=== PATIENT | male | born 1980 | race Two or more races ===

== ENCOUNTER 2020-01-29 09:54 | Inpatient (IN) | payer SELFPAY ==
[2020-01-29] VITALS (12 sets, daily range): BP systolic 110–137; BP diastolic 70–97; PULSE 93–116; RESP 15–26; TEMP 36.6–37.9; O2SAT 94–97; BMI 37.1
--- NOTE | ~2020-01-29 | XR_ITS ---
EXAMINATION: XR ERCP DATE: 01/31/2020 17:26 INDICATION: Right upper quadrant abdominal pain. TECHNIQUE: 5 spot fluoroscopic images of the right upper quadrant were obtained during endoscopic ret rograde cholangiopancreatography (ERCP). Fluoroscopy exposure time was 148 seconds. COMPARISON: CT abdomen and pelvis 01/29/2020 FINDINGS: The endoscope tip is in the second portion the duodenum. There is opacification of the comm on duct. Images demonstrate filling defects in the common duct. The common duct is mildly dilated. IMPRESSION: 1. Filling defects in the common duct, consistent with sludge and/or stones. Please refer to the ERCP procedure note for additional details. Reviewed, dictated and finalized at location A. IMPRESSION: 1. Filling defects in the common duct, consistent with sludge and/or stones. Pl ease refer to the ERCP procedure note for additional details.
--- NOTE | ~2020-01-29 | US_ITS ---
EXAMINATION: US right upper quadrant DATE: 01/29/2020 14:03 INDICATION: Right upper quadrant abdominal pain. TECHNIQUE: Multiple grayscale and Doppler ultrasound images of the abdomen were obtained. COMPARISON: CT 01/29/2020 FINDINGS: The pancreas is not well visualized. The liver is normal without focal lesion. There is nor mal flow in main portal vein. The gallbladder is absent. The common duct is normal and measures 8 mm. IMPRESSION: 1. Normal right upper quadrant ultrasound status post cholecystectomy. Reviewed, dictated and finalized at location A.
--- NOTE | ~2020-01-29 | CT_ITS ---
EXAMINATION: CT brain wo con DATE: 01/29/2020 12:24 INDICATION: Headache. TECHNIQUE: Computed tomography (CT) of the head was performed without intravenous contrast. The mA wa s adjusted according to patient size. Iterative reconstruction technique was employed. The dose-lengt h product was 605.33 mGy-cm. COMPARISON: None FINDINGS: There is no intracranial hemorrhage, acute infarction, or abnormal intracranial mass lesion . The ventricles are normal in size. There is mild mucosal thickening in the ethmoid sinuses. The mas toid air cells are normal. The orbits are normal. IMPRESSION: 1. Normal brain. Reviewed, dictated and finalized at location A. IMPRESSION: 1. Normal brain.
--- NOTE | ~2020-01-29 | CT_ITS ---
EXAMINATION: Nikhil Oconnor PA-C DATE: 01/29/2020 12:24 INDICATION: Chest pain. Low back pain. Fever. TECHNIQUE: Computed tomographic angiography (CTA) of the chest, abdomen, and pelvis was performed wit h 100 mL Omnipaque-350 intravenous contrast. Automated exposure control and iterative reconstruction technique were employed. The dose-length product was 1510.74 mGy-cm. Maximum intensity projection 3D- reconstructions of the aorta and other arteries were constructed by the technologist on a separate wo rkstation. COMPARISON: None. FINDINGS: CHEST CTA: The lungs demonstrate mild atelectasis. The lung volumes are small. There is mild elevation of right hemidiaphragm. No pleural effusion. The heart size is normal. No pericardial effusion. There is no pu lmonary embolus, but sensitivity is mildly decreased by motion artifact. Thoracic aorta is normal in caliber. No aneurysm or dissection. ABDOMEN AND PELVIS CTA: The liver is normal. There is an internal biliary stent in expected position. There are changes of ch olecystectomy. The spleen, pancreas, adrenal glands, and right kidney are normal. There is a 2.8 cm c yst in left kidney. There are no dilated loops of bowel. The appendix is normal. There is mild aortic atherosclerosis. No aneurysm or dissection. Asymmetric fat in left inguinal canal may be a small her coral. The bones are unremarkable. IMPRESSION: 1. No aortic aneurysm or dissection. 2. Internal biliary stent in expected position. Reviewed, dictated and finalized at location A.
--- NOTE | ~2020-01-29 | XR_ITS ---
EXAMINATION: XR chest 1V portable DATE: 01/29/2020 10:49 INDICATION: Shortness of breath, fever, and headache. TECHNIQUE: A single frontal view of the chest was obtained. COMPARISON: None. FINDINGS: There is mild elevation of right hemidiaphragm. There is mild atelectasis in left lower derrick g zone. No pleural effusion or pneumothorax. The heart size is normal. IMPRESSION: 1. Mild elevation of right hemidiaphragm. 2. Mild atelectasis in left lower lung zone. Reviewed, dictated and finalized at location A.
[2020-01-29] MEDS: ONDANSETRON INJ 4 MG/2 ML VIAL IV PUSH (10:50)
[2020-01-29] MEDS: MORPHINE SULFATE 4 MG/ML INJ IV PUSH ×2 (10:50→11:53)
[2020-01-29 11:00] LABS: Hematocrit 46.7 % (42.0-52.0); Hemoglobin 15.7 g/dL (14.0-18.0); Mean Corpuscular HGB Conc 33.6 g/dl (32-36); Mean Corpuscular Hemoglobin 29.4 pg (26-34); Mean Corpuscular Volume 87.5 fl (80-100); Mean Platelet Volume 9.9 fl (7.4-10.4); Platelet Count Result 272 k/mm3 (150-375); Red Blood Count 5.34 M/mm3 (4.6-6.20); White Blood Count 12.6 K/mm3 (4.5-10.0)
[2020-01-29 11:11] LABS: Partial Thromboplastin Time 30.5 SECONDS (22.3-36.8)
--- NOTE | 2020-01-29 11:12 | ED.GENADULT ---
HPI - General Adult General Chief complaint: Headache Stated complaint: Fever, Headache Time Seen by Provider: 01/29/20 10:09 Source: patient Mode of arrival: ambulatory Limitations: no limitations History of Present Illness HPI narrative: Patient is a 39-year-old male who presents to emergency department noting for the last 2 days he has had subjective fever chills abdominal pain headache patient denies sick contacts patient presents per private vehicle has not taken anything for his symptoms. Patient denies chest pain dyspnea vomiting diarrhea rectal bleeding or melena or any URI symptoms. Patient denies similar occurrence in the past. Patient denies any significant past medical history. Patient notes a year and a half ago he had his gallbladder removed. Patient denies any tobacco alcohol or illicit drug abuse. Patient speaks Dive[place] and an county agent was used to obtain the history from the patient. Related Data Home Medications Medication Instructions Recorded Confirmed No Home Medications 01/29/20 01/29/20 Allergies Allergy/AdvReac Type Severity Reaction Status Date / Time No Known Allergies Allergy Verified 01/29/20 10:08 Review of Systems Review of Systems: All systems reviewed & are unremarkable except as noted in HPI and below PMFSH Past Medical History Medical History (Updated 01/29/20 @ 15:32 by Nikhil Oconnor PA-C) Obese Surgical History Surgical History (Updated 01/29/20 @ 11:14 by Nikhil Oconnor PA-C) History of cholecystectomy Social History Social History (Updated 01/29/20 @ 11:14 by Nikhil Oconnor PA-C) Smoking status: Never smoker Exam Narrative: Exam Narrative: GENERAL: Well-appearing, obese, and in no acute distress. HEAD: Normocephalic, atraumatic. EYES: PERRLA and EOMI. ENT: Nares clear, no rhinorrhea or epistaxis. Mucous membranes moist. Oropharynx without tonsillar hypertrophy exudate or other lesions. NECK: Supple. No adenopathy or masses. CHEST: Clear to auscultation. No respiratory distress. No wheezes rales or rhonchi HEART: Regular rate and rhythm. No murmur heard. Normal peripheral pulses. ABDOMEN: Soft, mild tenderness of the abdomen, distended EXTREMITIES: Normal range of motion. No edema. SKIN: Warm, dry, no rash. NEURO: No focal deficits. Alert and oriented x3. PSYCH: Normal mood and affect. Course Course Emergency Course: Patient in the room in no distress aware of case findings treatment plan and diagnosis. Patient agreeing to stay in hospital patient was made aware of the discussions with gastroenterology the hospitalist and county agent was used. Patient resting comfortably has been hydrated given IV antibiotics and will be followed by the hospitalist service and gastroenterology Consultations Consultation #1: Discussed case with hospitalist and gastroenterology, director of manufacturing operations plans to remove the stent on Friday patient will be managed with clear liquid diet and Zosyn and pain management Date: 01/29/20 Time: 15:29 Vital Signs Vital signs: Vital Signs Temperature 97.9 F 01/29/20 10:04 Pulse Rate 116 H 01/29/20 10:04 Respiratory Rate 18 01/29/20 10:04 Blood Pressure 119/90 01/29/20 10:04 Pulse Oximetry 96 01/29/20 10:04 Temperature 97.9 F 01/29/20 13:02 Pulse Rate 93 01/29/20 14:05 Respiratory Rate 15 01/29/20 14:05 Blood Pressure 110/70 01/29/20 14:05 Pulse Oximetry 97 01/29/20 14:05 Medical Decision Making MDM Narrative Medical decision making narrative: Patient in the room resting comfortably aware of case findings treatment plan and diagnosis agreeing to stay in hospital has been hydrated in the emergency department given IV antibiotics resting comfortably noting that his pain is much better. Patient afebrile nontoxic-appearing no distress Vital Signs Vital Signs: Vital Signs Temperature 97.9 F 01/29/20 10:04 Pulse Rate 116 H 01/29/20 10:04 Respiratory Rate 18 01/29/20 10:0
[2020-01-29 11:14] LABS: Band Neutrophils Percent 6 % (0-6); Lymphocytes Absolute Manual 0.88 K/mm3 (1.1-4.5); Monocytes Percent Manual 8 % (3-9); Neutrophils Absolute Manual 10.71 K/mm3 (1.3-6.7); Neutrophils Percent Manual 79 % (46-73); Platelet Estimate Adequate (Adequate); Total Cells Counted 100
--- NOTE | 2020-01-29 11:15 | ECG_ITS ---
Measurements Intervals [place] Rate: 108 P: 28 SD: 165 QRS: -13 QRSD: 101 T: 22 QT: 336 QTc: 452 Interpretive Statements SINUS TACHYCARDIA CANNOT RULE OUT SEPTAL INFARCT, AGE INDETERMINATE BORDERLINE T WAVE ABNORMALITY- INF/LAT LEADS BASELINE WANDER- I, III ABNORMAL ECG Electronically Signed On 01-29-2020 12:04:45 CDT by Antonio Ravi D.O.
[2020-01-29 11:16] LABS: Alanine Aminotransferase 376 U/L (4-50); Albumin Level 4.6 g/dL (3.5-5.1); Alkaline Phosphatase 333 U/L (38-126); Aspartate Amino Transferase 260 U/L (17-59); Bilirubin,Total 5.3 mg/dL (0.2-1.3); Blood Urea Nitrogen 11 mg/dL (9-20); CRP 6.1 mg/dL (<1.0); Calcium 9.2 mg/dL (8.4-10.2); Carbon Dioxide 22 mmol/L (22-30); Chloride 104 mmol/L (98-107); Estimated CRCL calculation 110 ml/min; Estimated Glomerular Filt Rate > 60; Glucose 126 mg/dL (75-110); Lipase 34 U/L (23-300); Potassium 3.8 mmol/L (3.4-5.0); Sodium 138 mmol/L (137-145)
[2020-01-29 11:25] LABS: Troponin I < 0.012 ng/mL (0.000-0.034)
[2020-01-29 11:29] LABS: Lactic Acid Reflex 0.8 mmol/L (0.7-2.1)
[2020-01-29 11:41] LABS: Add Urine Microscopic? YES; Appearance Urine Clear (Clear); Bilirubin Urine 2+ (Negative); Blood Urine Negative (Negative); Color Urine Amber (Yellow); Glucose Urine UA Negative (Negative); Ketones Urine Trace mg/dL (Negative); Leukocyte Esterase Ur Negative LEU/UL (Negative); Mucus Urine Heavy /lpf; Nitrate Urine Negative (Negative); Protein Urine 1+ mg/dL (Negative); RBC Urine 0-2 /hpf (0-2); Squamous Epithelial Cell Urine Occasional /hpf (Few); WBC Urine 0-3 /hpf
[2020-01-29 11:43] LABS: Specific Grav Ur 1.035 (1.001-1.035)
[2020-01-29] MEDS: SODIUM CHLORIDE 0.9% IV 1,000 ML 999 ML IV CONT (11:53)
[2020-01-29 11:57] LABS: Barbiturate Screen Urine Negative (Negative); Benzodiazepines Screen Urine Negative (Negative)
[2020-01-29 12:03] LABS: Amphetamine Screen Urine Negative (Negative); Cannabinoid Screen Urine Negative (Negative); Cocaine Screen Urine Negative (Negative); Methadone Screen Urine Negative (Negative); Opiate Screen Urine Positive (Negative); Phencyclidine Screen Urine Negative (Negative)
[2020-01-29 14:14] LABS: Troponin I < 0.012 ng/mL (0.000-0.034)
[2020-01-29] MEDS: KETOROLAC 30 MG/ML VIAL (*BKC) IV PUSH (14:57)
--- NOTE | 2020-01-29 17:06 | PC.NURSE ---
This patient, Dean Nuno, was admitted to Medical Room 342-01. Patient/family oriented to hospital policies and general routines including ID bracelet, bed and alarms, visiting hours, pain management, procedures, bathroom and other care routines, personal items, smoking policy, room service/diet, and visiting hours. Valuables list has been completed. Information on how to activate the Rapid Response Team has been discussed. Patient/Family are encouraged to report perceived risks to care and to ask questions if they do not understand what they are told or what they should do.
[2020-01-29] MEDS: LACTATED RINGERS 1,000 ML 125 ML IV CONT (17:13)
--- NOTE | 2020-01-29 17:30 | PC.NURSE ---
Call via [employer] hydraulic pile hammer operator with assistance of Telugu hydraulic pile hammer operatorEse. Reviewed patient's plan of care, health history, admission questions, and head to toe assessment. FANTASMA Begum to bedside at 1810 to assess patient.
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
[2020-01-29 20:46] LABS: Hepatitis B Surface Antigen Negative (Negative)
[2020-01-29 20:52] LABS: HAV RESULT Negative (Negative); Hepatitis B Core IgM Result Negative (Negative)
[2020-01-29 21:03] LABS: Hepatitis C Virus Antibody Negative (Negative)
[2020-01-30] MEDS: LACTATED RINGERS 1,000 ML 125 ML IV CONT ×3 (00:01→18:15)
[2020-01-30] MEDS: FAMOTIDINE 20 MG/2 ML VIAL IV PUSH ×3 (00:02→21:17)
[2020-01-30 01:19] VITALS: TEMP 36.9
[2020-01-30 06:00] VITALS: BP 115/68; PULSE 82; RESP 18; TEMP 36.3; O2SAT 96
[2020-01-30 08:57] LABS: Basophils Percent Auto 0.2 % (0.2-1.2); Eosinophils Absolute Auto 0.3 K/mm3 (0-0.3); Eosinophils Percent Auto 5.4 % (0-4.4); Hematocrit 41.8 % (42.0-52.0); Hemoglobin 13.7 g/dL (14.0-18.0); Immature Granulocyte Absolute 0.01 K/mm3 (0.00-0.031); Immature Granulocyte Percent A 0.2 % (0-0.5); Lymphocytes Absolute Auto 1.13 K/mm3 (0.9-3.2); Lymphocytes Percent Auto 23.4 % (18.3-44.2); Mean Corpuscular HGB Conc 32.8 g/dl (32-36); Mean Corpuscular Hemoglobin 28.9 pg (26-34); Mean Corpuscular Volume 88.2 fl (80-100); Mean Platelet Volume 9.7 fl (7.4-10.4); Monocytes Absolute Auto 0.6 K/mm3 (0.1-0.6); Neutrophils Absolute Auto 2.8 K/mm3 (1.3-6.7); Neutrophils Percent Auto 57.8 % (45.5-73.1); Platelet Count Result 212 k/mm3 (150-375); Red Blood Count 4.74 M/mm3 (4.6-6.20); White Blood Count 4.8 K/mm3 (4.5-10.0)
[2020-01-30 09:10] LABS: Bilirubin Direct 2.4 mg/dL (0-0.3)
[2020-01-30 09:11] LABS: Bilirubin Indirect 1.6 mg/dL (0-1.1)
[2020-01-30 09:12] LABS: Alanine Aminotransferase 267 U/L (4-50); Albumin Level 3.8 g/dL (3.5-5.1); Alkaline Phosphatase 247 U/L (38-126); Aspartate Amino Transferase 127 U/L (17-59); Blood Urea Nitrogen 8 mg/dL (9-20); Calcium 8.6 mg/dL (8.4-10.2); Carbon Dioxide 27 mmol/L (22-30); Chloride 105 mmol/L (98-107); Estimated CRCL calculation 120 ml/min; Estimated Glomerular Filt Rate > 60; Glucose 112 mg/dL (75-110); Lipase 49 U/L (23-300); Potassium 3.8 mmol/L (3.4-5.0); Sodium 139 mmol/L (137-145)
[2020-01-30 09:22] LABS: Erythrocyte Sedimentation Rate 45 mm/hr (0-20)
[2020-01-30 09:26] LABS: CRP 17.1 mg/dL (<1.0)
[2020-01-30 09:51] LABS: Lactate Dehydrogenase 487 U/L (313-618)
[2020-01-30 09:55] LABS: Thyroid Stimulating Hormone Reflex 0.659 uIU/mL (0.465-4.68)
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
--- NOTE | 2020-01-30 13:21 | PM.IMPN ---
Progress Note: A&P Assessment and Plan (1) Cholangitis: Code(s): K83.09 - Other cholangitis Status: Acute Assessment and Plan: GI believes he has cholangitis secondary to biliary stent obstruction since he never had removed 1 year ago when he had his gallbladder removed. Plan for ERCP tomorrow by GI, removal of stent and cleaning of the bile duct. Will continue giving patient IV fluids and IV antibiotics. Monitor LFTs in the morning. (2) Biliary stent obstruction: Code(s): T85.590A - Other mechanical complication of bile duct prosthesis, initial encounter Status: Acute Assessment and Plan: See above (3) Elevated LFTs: Code(s): R79.89 - Other specified abnormal findings of blood chemistry Status: Acute Assessment and Plan: Concerning for infection or obstruction given presence of biliary stent. CT Abd/Pelvis showed Internal biliary stent in expected position. Right upper quadrant ultrasound was unremarkable. Hepatitis panel for A, B and C were negative. Viral Hepatitis negative Most likely from Biliary stent obstruction and because it was placed for to long. Continue empiric antibiotics for possible underlying infection, IV Zosyn. Continue monitoring the patients symptoms. GI Input is greatly appreciated. (4) Leukocytosis: Code(s): D72.829 - Elevated white blood cell count, unspecified Status: Acute Assessment and Plan: Most likely from biliary stent obstruction and being in place for to long. Leukocytosis resolved today to 4.8. Empiric Zosyn to cover possible biliary infection. Blood cultures have been obtained and are pending. (5) Jaundice: Code(s): R17 - Unspecified jaundice Status: Acute Assessment and Plan: Most likely from biliary stent obstruction and being in place for to long. Plan is as detailed above. (6) Headache: Code(s): R51 - Headache Status: Acute Assessment and Plan: Will give Tylenol as needed. Time Spent With Patient Time with patient: 25 - 35 minutes Subjective Date/time seen: 01/30/20 13:21 Interval history: Date of Service 01/30/2020: The patient states his symptoms began on when he began having nausea, vomiting and abdominal pain. He also noticed yellowing to his eyes. At this time his abdominal pain is improved but he is still not eaten anything today due to lack of appetite and some nausea. He reports having a severe headache at this time and reports prior headaches in the past that are similar and he would normally take [id number] medications. He denies any vision changes or neck pain. He also reports having some diaphoresis and fevers and would like something for that. Denies any chills. He also reports lower back pain from sitting in the bed. He denies any urinary issues, chest pain, shortness of breath, vomiting, diarrhea, constipation, leg swelling, calf pain, pruritus, or any other symptoms at this time. Review of Systems Review of Systems: All systems reviewed & are unremarkable except as noted in HPI and below Exam Narrative: Exam Narrative: General: 39-year-old man sitting up in bed talking on the phone. Appears comfortable. In no acute distress. Eyes: Jaundice Skin: Jaundice. No cyanosis. Good skin turgor. Neck: Full range of motion. Supple. Respiratory: Lungs are clear to auscultation bilaterally. No wheezing, rales or rhonchi. No bony chest wall tenderness. Cardiovascular: The heart has a regular rate and rhythm without murmur. Lower extremities: No lower extremity edema. Distal pulses are easily palpated. No calf tenderness to palpa
[2020-01-30 14:00] VITALS: BP 113/67; PULSE 86; RESP 18; TEMP 36.3; O2SAT 99
[2020-01-30 20:25] VITALS: BP 122/77; PULSE 79; RESP 16; TEMP 36.2; O2SAT 99
[2020-01-31] VITALS (11 sets, daily range): BP systolic 103–117; BP diastolic 68–81; PULSE 75–86; RESP 16–22; TEMP 36.3–36.7; O2SAT 95–100
[2020-01-31] MEDS: LACTATED RINGERS 1,000 ML 125 ML IV CONT ×2 (05:17→22:36)
[2020-01-31 05:46] LABS: Basophils Percent Auto 0.3 % (0.2-1.2); Eosinophils Absolute Auto 0.3 K/mm3 (0-0.3); Hematocrit 39.5 % (42.0-52.0); Hemoglobin 13.1 g/dL (14.0-18.0); Immature Granulocyte Absolute 0.01 K/mm3 (0.00-0.031); Immature Granulocyte Percent A 0.2 % (0-0.5); Lymphocytes Absolute Auto 1.39 K/mm3 (0.9-3.2); Lymphocytes Percent Auto 23.8 % (18.3-44.2); Mean Corpuscular HGB Conc 33.2 g/dl (32-36); Mean Corpuscular Hemoglobin 29.1 pg (26-34); Mean Corpuscular Volume 87.8 fl (80-100); Mean Platelet Volume 9.5 fl (7.4-10.4); Monocytes Absolute Auto 0.5 K/mm3 (0.1-0.6); Monocytes Percent Auto 7.7 % (2.6-8.5); Neutrophils Absolute Auto 3.7 K/mm3 (1.3-6.7); Platelet Count Result 233 k/mm3 (150-375); Red Cell Distribution Width 12.7 % (11.5-14.5); White Blood Count 5.8 K/mm3 (4.5-10.0)
[2020-01-31 05:59] LABS: Potassium 3.9 mmol/L (3.4-5.0)
[2020-01-31 06:10] LABS: Alanine Aminotransferase 247 U/L (4-50); Albumin Level 3.8 g/dL (3.5-5.1); Alkaline Phosphatase 210 U/L (38-126); Aspartate Amino Transferase 121 U/L (17-59); Bilirubin,Total 2.8 mg/dL (0.2-1.3); Blood Urea Nitrogen 8 mg/dL (9-20); Calcium 8.8 mg/dL (8.4-10.2); Carbon Dioxide 26 mmol/L (22-30); Chloride 104 mmol/L (98-107); Estimated CRCL calculation 120 ml/min; Estimated Glomerular Filt Rate > 60; Glucose 89 mg/dL (75-110); Sodium 138 mmol/L (137-145)
[2020-01-31] MEDS: FAMOTIDINE 20 MG/2 ML VIAL IV PUSH ×2 (08:55→22:36)
--- NOTE | 2020-01-31 12:54 | PC.NURSE ---
Pt to GI lab per stretcher at this time. Demonstration for GI labor economics professor [place] [id number] pre procedure at pt bedside.
[2020-01-31] MEDS: LACTATED RINGERS 1,000 ML 150 ML IV CONT (13:09)
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
--- NOTE | 2020-01-31 14:16 | PM.IMPN ---
Progress Note: A&P Assessment and Plan (1) Cholangitis: Code(s): K83.09 - Other cholangitis Status: Acute Assessment and Plan: GI believes he has cholangitis secondary to biliary stent obstruction since he never had removed 1 year ago when he had his gallbladder removed. Plan for ERCP today by GI, removal of stent and cleaning of the bile duct. Will continue giving patient IV fluids and IV antibiotics. Monitor LFTs in the morning. (2) Biliary stent obstruction: Code(s): T85.590A - Other mechanical complication of bile duct prosthesis, initial encounter Status: Acute Assessment and Plan: See above (3) Elevated LFTs: Code(s): R79.89 - Other specified abnormal findings of blood chemistry Status: Acute Assessment and Plan: Concerning for infection or obstruction given presence of biliary stent. CT Abd/Pelvis showed Internal biliary stent in expected position. Right upper quadrant ultrasound was unremarkable. Hepatitis panel for A, B and C were negative. Viral Hepatitis negative Most likely from Biliary stent obstruction and because it was placed for to long. Some improvement of LFTs and Bilirubin Continue empiric antibiotics for possible underlying infection, IV Zosyn. Continue monitoring the patients symptoms. GI Input is greatly appreciated. (4) Leukocytosis: Code(s): D72.829 - Elevated white blood cell count, unspecified Status: Acute Assessment and Plan: Most likely from biliary stent obstruction and being in place for to long. Leukocytosis resolved today to 5.8. Empiric Zosyn to cover possible biliary infection. Blood cultures show no growth at this time. Continue monitoring. (5) Jaundice: Code(s): R17 - Unspecified jaundice Status: Acute Assessment and Plan: Most likely from biliary stent obstruction and being in place for to long. Seems to be improving. Plan is as detailed above. (6) Headache: Code(s): R51 - Headache Status: Acute Assessment and Plan: Will give Tylenol as needed. Resolved today. Time Spent With Patient Time with patient: 25 - 35 minutes Subjective Date/time seen: 01/31/20 14:16 Interval history: Date of Service 01/31/2020: He states his symptoms are better today. His abdomen is still slightly painful but he does not need anything for that. He denies any nausea, vomiting. He does not have a headache anymore. He denies any urinary issues, chest pain, shortness of breath, vomiting, diarrhea, constipation, leg swelling, calf pain, pruritus, or any other symptoms at this time. Review of Systems Review of Systems: All systems reviewed & are unremarkable except as noted in HPI and below Exam Narrative: Exam Narrative: General: 39-year-old man laying on his right side in bed talking on the phone. Appears comfortable. In no acute distress. Eyes: Less jaundiced appearing today Skin: Jaundice. No cyanosis. Good skin turgor. Neck: Full range of motion. Supple. Respiratory: Lungs are clear to auscultation bilaterally. No wheezing, rales or rhonchi. No bony chest wall tenderness. Cardiovascular: The heart has a regular rate and rhythm without murmur. Lower extremities: No lower extremity edema. Distal pulses are easily palpated. No calf tenderness to palpation. Gastrointestinal: Tenderness to palpation of epigastric and right upper quadrant. Moderate abdominal distension. Active bowel sounds. Psychiatric: Lucid and oriented. Memory intact. Neurologic: No focal deficits. Speech is clear. No facial drooping. Objective Data Vital Signs Vital Signs: Vital S
--- NOTE | 2020-01-31 17:45 | SUR.PHASEII ---
ERICK BLANCHARD GIVEN REPORT BY HEMALATHA BLANCHARD
--- NOTE | 2020-01-31 18:23 | PC.NURSE ---
Patient returned from GI lab per stretcher.
[2020-01-31] MEDS: MORPHINE SULFATE 4 MG/ML INJ IV PUSH ×2 (18:27→20:25)
[2020-02-01] MEDS: MORPHINE SULFATE 4 MG/ML INJ IV PUSH ×2 (04:26→12:12)
[2020-02-01] MEDS: ONDANSETRON INJ 4 MG/2 ML VIAL IV PUSH (04:26)
[2020-02-01 06:00] VITALS: BP 120/77; PULSE 90; RESP 18; TEMP 36.2; O2SAT 95
[2020-02-01 06:04] LABS: Hemoglobin 14.8 g/dL (14.0-18.0); Mean Corpuscular HGB Conc 34.4 g/dl (32-36); Mean Corpuscular Hemoglobin 29.5 pg (26-34); Mean Corpuscular Volume 85.7 fl (80-100); Mean Platelet Volume 9.5 fl (7.4-10.4); Platelet Count Result 254 k/mm3 (150-375); Red Blood Count 5.02 M/mm3 (4.6-6.20); Red Cell Distribution Width 12.5 % (11.5-14.5); White Blood Count 9.4 K/mm3 (4.5-10.0)
[2020-02-01 06:21] LABS: Alanine Aminotransferase 250 U/L (4-50); Alkaline Phosphatase 237 U/L (38-126); Aspartate Amino Transferase 131 U/L (17-59); Bilirubin,Total 5.6 mg/dL (0.2-1.3); Blood Urea Nitrogen 7 mg/dL (9-20); Carbon Dioxide 24 mmol/L (22-30); Chloride 99 mmol/L (98-107); Estimated CRCL calculation 136 ml/min; Estimated Glomerular Filt Rate > 60; Glucose 113 mg/dL (75-110); Potassium 3.7 mmol/L (3.4-5.0); Sodium 135 mmol/L (137-145)
--- NOTE | 2020-02-01 07:41 | WPDANESPN ---
Anes - Prog Note Post-Op Date/Time: 02/01/20 07:41 Cardiovascular status: normal Respiratory status: normal Airway patency: baseline Mental status: baseline Post-Op hydration status: normal Vital Signs: Last Vital Signs Temp 36.2 C L 02/01/20 06:00 Pulse 90 02/01/20 06:00 Resp 18 02/01/20 06:00 BP 120/77 02/01/20 06:00 Pulse Ox 95 02/01/20 06:00 I/O: Intake & Output 01/31/20 01/31/20 02/01/20 15:59 23:59 07:59 Intake Total 50 1965 50 Balance 50 1965 50 Laboratory Tests 02/01/20 05:46 02/01/20 05:46 02/01/20 02/01/20 05:46 05:46 WBC 9.4 RBC 5.02 Hgb 14.8 Hct 43.0 MCV 85.7 MCH 29.5 MCHC 34.4 RDW 12.5 Plt Count 254 MPV 9.5 Sodium 135 L Potassium 3.7 Chloride 99 Carbon Dioxide 24 BUN 7 L Creatinine 0.70 Estim Creat Clear Calc 136 Estimated GFR > 60 Glucose 113 H Calcium 9.0 Total Bilirubin 5.6 H AST 131 H ALT 250 H Alkaline Phosphatase 237 H C-Reactive Protein 6.0 H Total Protein 7.0 Albumin 4.0 Post-procedural complaints: none Patient Feedback: Patient satisfied with anesthetic care.
[2020-02-01] MEDS: FAMOTIDINE 20 MG/2 ML VIAL IV PUSH ×2 (09:25→20:34)
--- NOTE | 2020-02-01 09:44 | PC.NURSE ---
Tavo used with pt to interpret this mornings assessment and medication pass.
[2020-02-01 14:00] VITALS: BP 112/72; PULSE 91; RESP 16; TEMP 36.8; O2SAT 96
[2020-02-01] MEDS: LACTATED RINGERS 1,000 ML 100 ML IV CONT (15:12)
--- NOTE | 2020-02-01 16:23 | PM.IMPN ---
Progress Note: A&P Assessment and Plan (1) Cholangitis: Code(s): K83.09 - Other cholangitis Status: Acute Assessment and Plan: GI consulted and appreciate rec; suspected cholangitis secondary to biliary stent obstruction since he never had removed 1 year ago when he had his gallbladder removed. S/p ERCP with stent removal, stone and biliary sludge extraction per GI on 01/30. LFTs relatively stable today, although still elevated. Bili up to 5.6 today Patient can advance diet as tolerated per GI rec Monitor labs tomorrow Continue IV zosyn for now Await further rec from GI (2) Biliary stent obstruction: Code(s): T85.590A - Other mechanical complication of bile duct prosthesis, initial encounter Status: Acute Assessment and Plan: See above (3) Elevated LFTs: Code(s): R79.89 - Other specified abnormal findings of blood chemistry Status: Acute Assessment and Plan: Concerning for infection or obstruction given presence of biliary stent. CT Abd/Pelvis showed Internal biliary stent in expected position. Right upper quadrant ultrasound was unremarkable. Hepatitis panel for A, B and C were negative. Most likely from Biliary stent obstruction. LFTs still elevated but relatively stable. Bili up to 5.6 today. Patient clinically feels better and wants to advance diet Advance diet as tolerated Continue IV Zosyn for now Continue monitoring the patients symptoms. Monitor Labs GI Input is greatly appreciated. (4) Leukocytosis: Code(s): D72.829 - Elevated white blood cell count, unspecified Status: Acute Assessment and Plan: Resolved. Most likely from biliary stent obstruction. BCx negative to date Empiric Zosyn to cover possible biliary infection. Continue monitoring. (5) Jaundice: Code(s): R17 - Unspecified jaundice Status: Acute Assessment and Plan: Most likely from biliary stent obstruction. Bili up to 5.6. Plan is as detailed above. (6) Headache: Code(s): R51 - Headache Status: Acute Assessment and Plan: He has headache and neck pain he thinks is from the procedure yesterday Will do Ibuprofen PRN for now Subjective Date/time seen: 02/01/20 16:23 Interval history: Patient is a 39 yo M with history of cholecystectomy who is here for suspected cholangitis and now s/p ERCP with stent removal and biliary stone and sludge removal per Dr. Sánchez yesterday. Patient speaks Swedish and history obtained via remote security installation sales technician. Patient states he overall feels better today but notes eating only broth today. He did have some nausea with nonbloody emesis, but this has subsided. He is wondering if he can advance his diet further as his n/v and abdominal pain have improved this afternoon. He also notes some left neck pain after his procedure yesterday. He has had some chills today. No other complaints. Denies myalgias/arthralgias, dizziness, lightheadedness, cp/palpitations, sob/cough, d/c, changes in BMs, dysuria, hematuria, calf pain/swelling. Review of Systems Review of Systems: All systems reviewed & are unremarkable except as noted in HPI and below Exam Narrative: Exam Narrative: Patient sitting upright in bed at time of visit. Nursing in room with remote security installation sales technician online Const: General: cooperative, no acute distress, well developed, alert and awake Orientation/consciousness: patient oriented x3 HENMT: Head: normocephalic and atraumatic General nose exam: Normal nares present Face and sinus: face symmetric Mouth: Yes moist mucous membranes Eyes: General: appearance normal, both eyes and all related structures
--- NOTE | 2020-02-01 16:59 | WPDGIPROGNO ---
Progress Note: A&P Assessment and Plan (1) Biliary stent obstruction: Code(s): T85.590A - Other mechanical complication of bile duct prosthesis, initial encounter Status: Acute Assessment and Plan: removed yesterday and also duct swept multiple times obtained sludge with stones ok to advance diet as tolerated still elevated bili- expect will come down (2) Cholangitis: Code(s): K83.09 - Other cholangitis Status: Acute Assessment and Plan: on iv zosyn (3) Elevated LFTs: Code(s): R79.89 - Other specified abnormal findings of blood chemistry Status: Acute Assessment and Plan: continue to trend liver enzymes due to retained bile duct stent for over a year which was removed yesterday with ercp Subjective Date/time seen: 02/01/20 16:59 Interval history: ercp yesterday with removal of old plastic biliary stent with large amount of sludge and stones today no abdominal pain ,feels ok (used cardiothoracic icu rn) Review of Systems Review of Systems: All systems reviewed & are unremarkable except as noted in HPI and below Exam Const: General: comfortable and no acute distress HENMT: General nose exam: Normal nares present Eyes: General: appearance normal, both eyes and all related structures Neck: Neck: no JVD Resp: Auscultation: clear to auscultation bilaterally Cardio: Rate: regular rate Rhythm: regular rhythm GI: Inspection: non-distended GI Palp: Yes Soft to palpation Auscultation: normal bowel sounds Skin: General skin exam: normal color Neuro: General: gait normal Speech: normal speech Extrem: General: normal to inspection Psych: Mental Status: mental status grossly normal Objective Data Vital Signs Vital Signs: Vital Signs - 24 hr 01/31/20 17:15 01/31/20 17:25 01/31/20 17:35 Temperature 98.1 F Pulse Rate 84 86 83 Respiratory Rate 18 18 22 H Blood Pressure 114/69 103/70 109/76 Pulse Oximetry 98 95 98 01/31/20 17:45 01/31/20 17:55 01/31/20 18:05 Temperature Pulse Rate 82 75 77 Respiratory Rate 20 18 20 Blood Pressure 108/72 114/80 115/81 Pulse Oximetry 99 98 96 01/31/20 18:15 01/31/20 18:28 01/31/20 20:28 Temperature 97.6 F 97.3 F L Pulse Rate 79 77 83 Respiratory Rate 18 16 20 Blood Pressure 113/81 117/68 110/68 Pulse Oximetry 97 96 96 01/31/20 20:30 02/01/20 06:00 02/01/20 14:00 Temperature 97.2 F L 98.3 F Pulse Rate 83 90 91 Respiratory Rate 20 18 16 Blood Pressure 120/77 112/72 Pulse Oximetry 96 95 96 Intake/Output Intake/Output: Intake & Output 01/29/20 01/30/20 01/31/20 02/01/20 23:59 23:59 23:59 23:59 Intake Total 1100 3450 3065 1325 Balance 1100 3450 3065 1325 Meds/Results Medications: Active Medications Generic Name Dose Route Start Last Admin Trade Name Freq PRN Reason Stop Dose Admin Famotidine 20 mg 01/29/20 21:00 02/01/20 09:25 Pepcid Iv IV PUSH 20 mg Q12HR BUCKY Administration Piperacillin/Tazobactam/Dextrose 3.375 gm in 50 mls @ 100 mls/hr 01/29/20 21:00 02/01/20 15:44 Zosyn 3.375 Gm/D5w 50ml Pm IVPB Infused Q6H BUCKY Infusion Ibuprofen 400 mg 02/01/20 16:31 Motrin PO Q6H PRN Pain Rated 1-3 Lidocaine HCl 0.3 ml 01/31/20 09:51 Xylocaine 2% Local Inj INTRADERM ONCE PRN to numb area Morphine Sulfate 4 mg 01/29/20 15:33 02/01/20 12:12 Morphine Sulfate Inj IV PUSH 4 mg Q2H PRN Administration Pain Rated 7-10 Ondansetron HCl 4 mg 01/29/20 15:33 02/01/20 04:26 Zofran Inj IV PUSH 4 mg Q4H PRN Administration Nausea Radiology Results: ITS Impressions Chest X-Ray 01/29/20 10:55 IMPRESSION: 1. Mild elevation of right hemidiaphragm. 2. Mild atelectasis in left lower lung zone. Head CT 01/29/20 12:31 IMPRESSION: 1. Normal brain. Chest/Abdomen/Pelvis CTA 01/29/20 12:32 IMPRESSION: 1. No aortic aneurysm or dissection. 2. Internal biliary stent in expected position. Upper [place]
[2020-02-01 20:30] VITALS: PULSE 95; RESP 14; O2SAT 96
[2020-02-01 21:05] VITALS: BP 142/95; PULSE 95; RESP 14; TEMP 36.4; O2SAT 96
[2020-02-02 03:58] VITALS: BP 119/68; PULSE 85; RESP 16; TEMP 36.7; O2SAT 95
[2020-02-02 06:04] LABS: Hematocrit 42.7 % (42.0-52.0); Hemoglobin 14.2 g/dL (14.0-18.0); Mean Corpuscular HGB Conc 33.3 g/dl (32-36); Mean Corpuscular Hemoglobin 28.8 pg (26-34); Mean Corpuscular Volume 86.6 fl (80-100); Mean Platelet Volume 9.4 fl (7.4-10.4); Platelet Count Result 285 k/mm3 (150-375); Red Blood Count 4.93 M/mm3 (4.6-6.20)
[2020-02-02 06:19] LABS: Alanine Aminotransferase 338 U/L (4-50); Alkaline Phosphatase 229 U/L (38-126); Aspartate Amino Transferase 277 U/L (17-59); Bilirubin,Total 5.9 mg/dL (0.2-1.3); Blood Urea Nitrogen 8 mg/dL (9-20); Carbon Dioxide 30 mmol/L (22-30); Chloride 100 mmol/L (98-107); Estimated CRCL calculation 108 ml/min; Estimated Glomerular Filt Rate > 60; Glucose 121 mg/dL (75-110); Magnesium 2.2 mg/dL (1.6-2.3); Potassium 3.7 mmol/L (3.4-5.0); Sodium 137 mmol/L (137-145)
[2020-02-02] MEDS: FAMOTIDINE 20 MG/2 ML VIAL IV PUSH ×2 (09:26→20:58)
[2020-02-02 13:03] LABS: GGT 1075 U/L (3-95)
--- NOTE | 2020-02-02 13:58 | PM.IMPN ---
Progress Note: A&P Assessment and Plan (1) Cholangitis: Code(s): K83.09 - Other cholangitis Status: Acute Assessment and Plan: GI consulted and appreciate rec; suspected cholangitis secondary to biliary stent obstruction since he never had removed 1 year ago when he had his gallbladder removed. S/p ERCP with stent removal, stone and biliary sludge extraction per GI on 01/30. LFTs worsened today; Bili up to 5.[address] Sánchez and agree with keeping patient another night to trend LFTs and bili. Otherwise patient appears to be clinically improving without any abd pain, tolerating PO, and having BMs Patient can advance diet as tolerated per GI rec Monitor labs tomorrow Continue IV zosyn for now Await further rec from GI (2) Biliary stent obstruction: Code(s): T85.590A - Other mechanical complication of bile duct prosthesis, initial encounter Status: Acute Assessment and Plan: See above (3) Elevated LFTs: Code(s): R79.89 - Other specified abnormal findings of blood chemistry Status: Acute Assessment and Plan: Concerning for infection or obstruction given presence of biliary stent. CT Abd/Pelvis showed internal biliary stent in expected position. Right upper quadrant ultrasound was unremarkable. Hepatitis panel for A, B and C were negative. Most likely from Biliary stent obstruction. LFTs worsened overnight. Bili up to 5.9 today. Patient clinically feels better Advance diet as tolerated Continue IV Zosyn for now Continue monitoring the patients symptoms. Monitor Labs GI input is greatly appreciated. (4) Leukocytosis: Code(s): D72.829 - Elevated white blood cell count, unspecified Status: Acute Assessment and Plan: Resolved. Most likely from biliary stent obstruction. BCx negative to date Empiric Zosyn to cover possible biliary infection. Continue monitoring. (5) Jaundice: Code(s): R17 - Unspecified jaundice Status: Acute Assessment and Plan: Most likely from biliary stent obstruction. Bili up to 5.9 Plan is as detailed above. (6) Headache: Code(s): R51 - Headache Status: Acute Assessment and Plan: No headache/neck pain reported today Will do Ibuprofen PRN for now Subjective Date/time seen: 02/02/20 13:58 Interval history: Patient is a 39 yo M with history of cholecystectomy who is here for suspected cholangitis and now s/p ERCP with stent removal and biliary stone and sludge removal per Dr. Sánchez yesterday. Patient speaks Yi and history obtained via remote american sign language interpreter. Patient states he overall feels much better today. Tolerating diet and is having BMs per nursing. He has no complaints. Denies f/c/ns, cp/palpitations, sob/cough, n/v, changes in BMs, dysuria, hematuria, calf pain/swelling. Review of Systems Review of Systems: All systems reviewed & are unremarkable except as noted in HPI and below Exam Narrative: Exam Narrative: Patient lying supine in bed at time of visit. Remote american sign language interpreter online Const: General: cooperative, no acute distress, well developed, alert and awake Orientation/consciousness: patient oriented x3 HENMT: Head: normocephalic and atraumatic General nose exam: Normal nares present Face and sinus: face symmetric Mouth: Yes moist mucous membranes Eyes: General: appearance normal, both eyes and all related structures Sclera: scleral abnormality (icteric) bilateral EOM: EOMs intact bilaterally Neck: Neck: supple and no JVD Resp: Effort & Inspection: normal respiratory effort Auscultation: clear to auscultation bilaterally Cardio: Rate: re
[2020-02-02 14:00] VITALS: BP 127/79; PULSE 78; RESP 18; TEMP 36.4; O2SAT 98
[2020-02-02 14:31] LABS: Mitochondrial (M2) Ab (IgG) <=20.0 U (<=20.0)
[2020-02-02 14:31] LABS: Actin Antibody (IgG) <20 U (<20)
--- NOTE | 2020-02-02 16:04 | WPDGIPROGNO ---
Progress Note: A&P Assessment and Plan (1) Biliary stent obstruction: Code(s): T85.590A - Other mechanical complication of bile duct prosthesis, initial encounter Status: Acute Assessment and Plan: removed with ERCP and also duct swept multiple times obtained sludge with stones he is tolerating diet and mostly asymptomatic however still high bilirubin- hopefully by tomorrow will start trending down (2) Cholangitis: Code(s): K83.09 - Other cholangitis Status: Acute Assessment and Plan: on iv zosyn, continue with same (3) Elevated LFTs: Code(s): R79.89 - Other specified abnormal findings of blood chemistry Status: Acute Assessment and Plan: due to retained bile duct stent for over a year which was removed with ercp, also large amount of debris Subjective Date/time seen: 02/02/20 16:04 Interval history: no pain and tolerating diet Review of Systems Review of Systems: All systems reviewed & are unremarkable except as noted in HPI and below Exam Const: General: comfortable and no acute distress HENMT: General nose exam: Normal nares present Eyes: General: appearance normal, both eyes and all related structures Neck: Neck: no JVD Resp: Auscultation: clear to auscultation bilaterally Cardio: Rate: regular rate Rhythm: regular rhythm GI: Inspection: non-distended GI Palp: Yes Soft to palpation Auscultation: normal bowel sounds Skin: General skin exam: normal color Neuro: General: gait normal Speech: normal speech Extrem: General: normal to inspection Psych: Mental Status: mental status grossly normal Objective Data Vital Signs Vital Signs: Vital Signs - 24 hr 02/01/20 20:30 02/01/20 21:05 02/02/20 03:58 Temperature 97.6 F 98.1 F Pulse Rate 95 95 85 Respiratory Rate 14 14 16 Blood Pressure 142/95 H 119/68 Pulse Oximetry 96 96 95 02/02/20 14:00 Temperature 97.5 F L Pulse Rate 78 Respiratory Rate 18 Blood Pressure 127/79 Pulse Oximetry 98 Intake/Output Intake/Output: Intake & Output 01/30/20 01/31/20 02/01/20 02/02/20 23:59 23:59 23:59 23:59 Intake Total 3450 3065 1877 300 Balance 3450 3065 1877 300 Meds/Results Medications: Active Medications Generic Name Dose Route Start Last Admin Trade Name Freq PRN Reason Stop Dose Admin Famotidine 20 mg 01/29/20 21:00 02/02/20 09:26 Pepcid Iv IV PUSH 20 mg Q12HR BUCKY Administration Piperacillin/Tazobactam/Dextrose 3.375 gm in 50 mls @ 100 mls/hr 01/29/20 21:00 02/02/20 14:24 Zosyn 3.375 Gm/D5w 50ml Pm IVPB 100 mls/hr Q6H BUCKY Administration Ibuprofen 400 mg 02/01/20 16:31 Motrin PO Q6H PRN Pain Rated 1-3 Lidocaine HCl 0.3 ml 01/31/20 09:51 Xylocaine 2% Local Inj INTRADERM ONCE PRN to numb area Morphine Sulfate 4 mg 01/29/20 15:33 02/01/20 12:12 Morphine Sulfate Inj IV PUSH 4 mg Q2H PRN Administration Pain Rated 7-10 Ondansetron HCl 4 mg 01/29/20 15:33 02/01/20 04:26 Zofran Inj IV PUSH 4 mg Q4H PRN Administration Nausea Radiology Results: ITS Impressions Chest X-Ray 01/29/20 10:55 IMPRESSION: 1. Mild elevation of right hemidiaphragm. 2. Mild atelectasis in left lower lung zone. Head CT 01/29/20 12:31 IMPRESSION: 1. Normal brain. Chest/Abdomen/Pelvis CTA 01/29/20 12:32 IMPRESSION: 1. No aortic aneurysm or dissection. 2. Internal biliary stent in expected position. Upper Quadrant Ultrasound 01/29/20 14:07 IMPRESSION: 1. Normal right upper quadrant ultrasound status post cholecystectomy. Endo Retro Cholangiopancreatogram 01/31/20 19:57 IMPRESSION: 1. Filling defects in the common duct, consistent with sludge and/or stones. Please refer to the ERCP procedure note for additional details. Labs Labs: Laboratory Results - last 24 hr 01/30/20 01/30/20 01/30/20 08:31 08:32 08:32 WBC RBC Hgb Hct MCV MCH MCHC
[2020-02-02 20:18] VITALS: BP 131/88; PULSE 63; RESP 16; TEMP 36.4; O2SAT 96
[2020-02-02 20:59] LABS: Ceruloplasmin 40 mg/dL (18-36)
[2020-02-03 05:57] VITALS: BP 116/88; PULSE 88; RESP 14; TEMP 36.6; O2SAT 97
[2020-02-03 06:02] LABS: Hematocrit 44.4 % (42.0-52.0); Hemoglobin 14.5 g/dL (14.0-18.0); Mean Corpuscular HGB Conc 32.7 g/dl (32-36); Mean Corpuscular Hemoglobin 28.9 pg (26-34); Mean Corpuscular Volume 88.4 fl (80-100); Mean Platelet Volume 9.3 fl (7.4-10.4); Platelet Count Result 302 k/mm3 (150-375); Red Blood Count 5.02 M/mm3 (4.6-6.20); Red Cell Distribution Width 13.1 % (11.5-14.5); White Blood Count 6.9 K/mm3 (4.5-10.0)
[2020-02-03 06:21] LABS: Alanine Aminotransferase 424 U/L (4-50); Alkaline Phosphatase 231 U/L (38-126); Aspartate Amino Transferase 302 U/L (17-59); Blood Urea Nitrogen 10 mg/dL (9-20); Carbon Dioxide 28 mmol/L (22-30); Chloride 102 mmol/L (98-107); Estimated CRCL calculation 108 ml/min; Estimated Glomerular Filt Rate > 60; Glucose 105 mg/dL (75-110); Magnesium 2.3 mg/dL (1.6-2.3); Potassium 4.1 mmol/L (3.4-5.0); Sodium 139 mmol/L (137-145)
--- NOTE | 2020-02-03 08:58 | WPDGIPROGNO ---
Progress Note: A&P Assessment and Plan (1) Biliary stent obstruction: Code(s): T85.590A - Other mechanical complication of bile duct prosthesis, initial encounter Status: Acute Assessment and Plan: removed with ERCP and also duct swept multiple times obtained sludge with stones bilirubin today down to 3, he is doing much better, no fever or leukocytosis he can go home today, 3 more days of abx (like augmentin) and he can follow up in 2 weeks in my office with blood work the day before appointment (2) Cholangitis: Code(s): K83.09 - Other cholangitis Status: Acute Assessment and Plan: on iv zosyn, ok to switch to oral abx and go home (3) Elevated LFTs: Code(s): R79.89 - Other specified abnormal findings of blood chemistry Status: Acute Assessment and Plan: due to retained bile duct stent for over a year which was removed with ercp, also large amount of debris Subjective Date/time seen: 02/03/20 08:58 Interval history: he is resting comfortable in bed, no abdominal pain Review of Systems Review of Systems: All systems reviewed & are unremarkable except as noted in HPI and below Exam Const: General: comfortable and no acute distress HENMT: General nose exam: Normal nares present Eyes: General: appearance normal, both eyes and all related structures Neck: Neck: no JVD Resp: Auscultation: clear to auscultation bilaterally Cardio: Rate: regular rate Rhythm: regular rhythm GI: Inspection: non-distended GI Palp: Yes Soft to palpation Skin: General skin exam: normal color Neuro: General: gait normal Speech: normal speech Extrem: General: normal to inspection Psych: Mental Status: mental status grossly normal Objective Data Vital Signs Vital Signs: Vital Signs - 24 hr 02/02/20 14:00 02/02/20 20:18 02/03/20 05:57 Temperature 97.5 F L 97.5 F L 97.8 F Pulse Rate 78 63 88 Respiratory Rate 18 16 14 Blood Pressure 127/79 131/88 116/88 Pulse Oximetry 98 96 97 Intake/Output Intake/Output: Intake & Output 01/31/20 02/01/20 02/02/20 02/03/20 23:59 23:59 23:59 23:59 Intake Total 3065 1877 1200 550 Output Total 150 Balance 3065 1877 1200 400 Meds/Results Medications: Active Medications Generic Name Dose Route Start Last Admin Trade Name Freq PRN Reason Stop Dose Admin Famotidine 20 mg 01/29/20 21:00 02/02/20 20:58 Pepcid Iv IV PUSH 20 mg Q12HR BUCKY Administration Piperacillin/Tazobactam/Dextrose 3.375 gm in 50 mls @ 100 mls/hr 01/29/20 21:00 02/03/20 03:23 Zosyn 3.375 Gm/D5w 50ml Pm IVPB Infused Q6H BUCKY Infusion Ibuprofen 400 mg 02/01/20 16:31 Motrin PO Q6H PRN Pain Rated 1-3 Lidocaine HCl 0.3 ml 01/31/20 09:51 Xylocaine 2% Local Inj INTRADERM ONCE PRN to numb area Morphine Sulfate 4 mg 01/29/20 15:33 02/01/20 12:12 Morphine Sulfate Inj IV PUSH 4 mg Q2H PRN Administration Pain Rated 7-10 Ondansetron HCl 4 mg 01/29/20 15:33 02/01/20 04:26 Zofran Inj IV PUSH 4 mg Q4H PRN Administration Nausea Radiology Results: ITS Impressions Chest X-Ray 01/29/20 10:55 IMPRESSION: 1. Mild elevation of right hemidiaphragm. 2. Mild atelectasis in left lower lung zone. Head CT 01/29/20 12:31 IMPRESSION: 1. Normal brain. Chest/Abdomen/Pelvis CTA 01/29/20 12:32 IMPRESSION: 1. No aortic aneurysm or dissection. 2. Internal biliary stent in expected position. Upper Quadrant Ultrasound 01/29/20 14:07 IMPRESSION: 1. Normal right upper quadrant ultrasound status post cholecystectomy. Endo Retro Cholangiopancreatogram 01/31/20 19:57 IMPRESSION: 1. Filling defects in the common duct, consistent with sludge and/or stones. Please refer to the ERCP procedure note for additional details. Labs Labs: Laboratory Results - last 24 hr 01/30/20 01/30/20 01/30/20 08:31 08:32 08:32 WBC RBC Hgb Hct MCV M
[2020-02-03] MEDS: FAMOTIDINE 20 MG/2 ML VIAL IV PUSH (09:14)
[2020-02-03 09:25] VITALS: PULSE 84; RESP 14; O2SAT 97
--- NOTE | 2020-02-03 11:15 | PM.DS ---
DS: Admitting Diagnosis Admitting Diagnosis Admitting Diagnosis: Inflammatory liver disease, unspecified DS: Discharge Diagnosis Discharge Diagnosis (1) Cholangitis: Code(s): K83.09 - Other cholangitis Status: Acute Assessment and Plan: GI consulted and appreciate rec; suspected cholangitis secondary to biliary stent obstruction since he never had removed 1 year ago when he had his gallbladder removed. S/p ERCP with stent removal, stone and biliary sludge extraction per GI on 01/30. LFTs slightly up but realitively stable; Bili down to 3.0 today. Otherwise patient appears to be clinically improving without any abd pain, tolerating PO, and having BMs. GI has okayed patient for discharge CMP 1 week F/u with Dr. Sánchez in 2 weeks Augmentin for 3 days (will do through 02/05) per GI rec (2) Biliary stent obstruction: Code(s): T85.590A - Other mechanical complication of bile duct prosthesis, initial encounter Status: Acute Assessment and Plan: See above (3) Elevated LFTs: Code(s): R79.89 - Other specified abnormal findings of blood chemistry Status: Acute Assessment and Plan: Concerning for infection or obstruction given presence of biliary stent. CT Abd/Pelvis showed internal biliary stent in expected position. Right upper quadrant ultrasound was unremarkable. Hepatitis panel for A, B and C were negative. Most likely from Biliary stent obstruction. LFTs relatively stable. Bili down to 3.0 today. Patient clinically feels better See above a/p GI input is greatly appreciated. (4) Leukocytosis: Code(s): D72.829 - Elevated white blood cell count, unspecified Status: Acute Assessment and Plan: Resolved. Most likely from biliary stent obstruction. BCx negative to date Empiric Zosyn to cover possible biliary infection during stay; augmentin at discharge (5) Jaundice: Code(s): R17 - Unspecified jaundice Status: Acute Assessment and Plan: Most likely from biliary stent obstruction. Bili down to 3.0 Plan is as detailed above. (6) Headache: Code(s): R51 - Headache Status: Acute Assessment and Plan: No headache/neck pain reported today DS: Summary Time Spent with Patient Time attestation: Total time spent providing and/or coordinating discharge services: Exam Narrative: Exam Narrative: Patient lying supine in bed at time of visit. Remote broadcaster online Const: General: cooperative, healthy appearing, comfortable, no acute distress, well developed, alert and awake Orientation/consciousness: patient oriented x3 HENMT: Head: normocephalic and atraumatic General nose exam: Normal nares present Face and sinus: face symmetric Mouth: Yes moist mucous membranes Eyes: General: appearance normal, both eyes and all related structures Sclera: scleral abnormality (icteric) bilateral EOM: EOMs intact bilaterally Neck: Neck: supple and no JVD Resp: Effort & Inspection: normal respiratory effort Auscultation: clear to auscultation bilaterally Cardio: Rate: regular rate Rhythm: regular rhythm Heart sounds: no murmurs GI: Inspection: non-distended and obesity GI Palp: No abdominal tenderness and Yes Soft to palpation Auscultation: normal bowel sounds and normoactive bowel sounds Skin: General skin exam: No normal color (jaundiced) Neuro: General: patient oriented x3, moves all extremities and no focal motor deficits Speech: normal speech (Speaks Persian) Extrem: Right lower extremity: no edema Left lower extremity: no edema Other: NTTP b/l calves Psych: Mental Status: mental status grossly normal Affect: norm
== END 2020-02-03 13:17 | disposition home or self-care (01) ==
LOC: ANHED 15:47 → ANH3MED 18:55
PROVIDERS: Emergency Medicine Emergency Medical Services; Internal Medicine Gastroenterology; Physician Assistant; Admitting Provider Family Medicine; Emergency Provider Emergency Medicine; Visit Provider Physician Assistant
PROC: 0FC98ZZ Extirpation of Matter from Common Bile Duct, Via Natural or Artificial Opening Endoscopic (ICD-10-PCS; CPT 43260; principal; 2020-01-31 13:30)
DX: K80.31 Calculus of bile duct with cholangitis, unspecified, with obstruction (principal); T85.590A Other mechanical complication of bile duct prosthesis, initial encounter; R79.89 Other specified abnormal findings of blood chemistry; R94.8 Abnormal results of function studies of other organs and systems; R51 Headache; K21.9 Gastro-esophageal reflux disease without esophagitis; Z90.49 Acquired absence of other specified parts of digestive tract
CPT/HCPCS: 36415; 70450; 71045; 71275; 74174; 74329; 76705; 80053; 80074; 80307; 81001; 82104; 82248; 82390; 82977; 83516; 83520; 83605; 83615; 83690; 83735; 84443; 84484; 85025; 85027; 85610; 85652; 85730; 86038; 86140; 87040; 93005; 96361; 96365; 96375; 96376; 99285; J0131; J0330; J1885; J2270; J2405; J2543; J2704; J7030; J7120; Q9967

== ENCOUNTER 2020-02-10 08:26 | Outpatient (CLI) | payer SELFPAY ==
[2020-02-10 09:22] LABS: Alanine Aminotransferase 168 U/L (4-50); Albumin Level 4.5 g/dL (3.5-5.1); Alkaline Phosphatase 172 U/L (38-126); Anion Gap 13.3 mmol/L (7-16); Aspartate Amino Transferase 64 U/L (17-59); Bilirubin,Total 1.3 mg/dL (0.2-1.3); Blood Urea Nitrogen 13 mg/dL (9-20); Calcium 9.4 mg/dL (8.4-10.2); Carbon Dioxide 27 mmol/L (22-30); Chloride 103 mmol/L (98-107); Estimated Glomerular Filt Rate > 60; Glucose 107 mg/dL (75-110); Potassium 4.3 mmol/L (3.4-5.0); Sodium 139 mmol/L (137-145)
== END 2020-02-10 08:27 | disposition home or self-care (01) ==
PROVIDERS: PCP Physician Assistant; Visit Provider Physician Assistant
DX: R17 Unspecified jaundice (principal); K83.09 Other cholangitis; T85.590A Other mechanical complication of bile duct prosthesis, initial encounter
CPT/HCPCS: 36415; 80053